=== PATIENT | male | born 1985 | race Caucasian/White ===

== ENCOUNTER 2019-08-21 13:00 | Outpatient (RCR) | payer OTHER, SELFPAY ==
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
--- NOTE | 2019-07-12 12:30 | HP.PTREVAL ---
Alice Mcdonald, DO, It has been my pleasure to treat JULIANA BRANDT over the last 3 visits for L shoulder pain. Please see the progress note below for an update on the physical therapy plan of care! Subjective: Pain got worse in shoulder blade mediallya fter starting pulling ex.8/10 for 5 days and now 3-4 but constant Objective/Function: tender knot rhomboid mid scap. Full aROM shoulder adn 4/5 strength with some pain with resisted flexion. Full neck ROM without pain and full scap ROM without pain. Plan Plan: increase to 3x/week for 2-3 weeks to wrok soft tissue L rhomboid with US themral, DTR, STM adn stretching to medial L scap. Try strength again slowly when painfree. New goal based on set back and fair prognosis Goals Goal 1:: Full aROM L shoulder without pain. Goal Time Frame: 4-6 Weeks Goal Progress: Goal Met Goal 2:: Pt feel back to 99% L sholder without pain. Goal Time Frame: 4-6 Weeks Goal Progress: Progressing Goal 3:: DASH perfect score Goal Time Frame: 4-6 Weeks Goal 4:: I approp HEP to minimize future problems. Goal Time Frame: 4-6 Weeks Goal Progress: Progressing Goal 5:: Return to 90% better adn I strength program Goal Time Frame: 4-6 Weeks Goal Progress: NEW GOAL Anticipated Interventions Patient/Client Instruction: Educate patient on: Condition, Plan of Care, Risk Factors For the Purpose of:: To decrease pain, To increase ROM, To improve nutrient delivery to tissue, To improve muscle performance and motor function, To improve ability of physical actions for home/community/work/leisure Therapeutic Exercise to Include: Strength training, Postural training, Flexibilty training, Passive ROM, Active ROM For the Purpose of:: To decrease pain, To increase ROM, To improve muscle performance and motor function, To improve ability of physical actions for home/community/work/leisure Please do not hesitate to contact me at [phone] by phone or if you have questions or concerns regarding this new plan of care! Sincerely, Eduardo Miller, DPT, OCS, CSCS
--- NOTE | 2019-07-26 14:51 | HP.PTREVAL_ITS ---
Alice Mcdonald, DO, It has been my pleasure to treat JULIANA BRANDT over the last 9 visits for L shoulder pain. Please see the progress note below for an update on the physical therapy plan of care! Subjective: Strengthening going better. Pain lately is more tight for a day or two after strengthening. Tightness is medial to distal angle scap. Needs to continue ex adn will on his own. Does not want MRI. Unable to make 3x/week anymore. Activities; avoiding full force in gym. Objective/Function: Full cervical and UE AROM without pain, Slight tightness with resisted abd L medial to scap. Defintiely tight to palpation in this area vs R and mildly tender today. OVERALL IMMPROVING BUT NOT BACK TO NORMAL. A PPROPRIATE TO CONTINUE WEEKLY SOFT TISSUE WORK IN CONJUCTION WITH HOME STRENGTHENING. FAIR PROGNOSIS TO NEW GOAL Plan Plan: SEE NEW PLAN. WEEKLY X 4. PLEASE LET PATIENT STRENGTHEN HIMSELF I. FOCUS IN THERAPY ON US THERMAL ADN DTR MANUALLY TO L MEDIAL SCAPULAR RHOMBOIDS/TRAPS.STRETCH NEEDED. NO OTHER EX INSTRUCT AT THIS POINT. Goals Goal 1:: Full aROM L shoulder without pain. Goal Time Frame: 4-6 Weeks Goal Progress: Goal Met Goal 2:: Pt feel back to 99% L sholder without pain. Goal Time Frame: 4-6 Weeks Goal Progress: Progressing Goal 3:: DASH perfect score Goal Time Frame: 4-6 Weeks Goal 4:: I approp HEP to minimize future problems. Goal Time Frame: 4-6 Weeks Goal Progress: Goal Met Goal 5:: Return to 90% better adn I strength program Goal Time Frame: 4-6 Weeks Goal Progress: Progressing Goal 6:: nO SOFT TISSUE TIGHTNESS FELT OR PALPABLE IN L SCAP AND BACK TO NORMAL GYM WORKOUT. Goal Time Frame: 2-4 Weeks Goal Progress: NEW GOAL Anticipated Interventions Patient/Client Instruction: Educate patient on: Condition, Plan of Care, Risk Factors For the Purpose of:: To decrease pain, To increase ROM, To improve nutrient delivery to tissue, To improve muscle performance and motor function, To improve ability of physical actions for home/community/work/leisure Therapeutic Exercise to Include: Strength training, Postural training, Flexibilty training, Passive ROM, Active ROM For the Purpose of:: To decrease pain, To increase ROM, To improve muscle performance and motor function, To improve ability of physical actions for home/community/work/leisure Manual Therapy Techniques to Include: Massage, Soft tissue mobilization Ultrasound (thermal/non thermal): Yes For the Purpose of:: To decrease pain, To improve nutrient delivery to tissue, To increase oxygenation perfusion Please do not hesitate to contact me at [phone] by phone or if you have questions or concerns regarding this new plan of care! Sincerely, Eduardo Miller, DPT, OCS, CSCS
--- NOTE | 2019-08-21 13:40 | HP.PTDCSUM ---
HP - PT D/C Summary It has been my pleasure to treat JULIANA BRANDT under orders from Alice Mcdonald DO, for the diagnosis of L shoulder pain for a total of 13 visit(s). Discharge Date: 08/21/19 Please see the following information for a summary of their discharge status. - Subjective Subjective: Better. ROM is full and much better. Strefngthening was tough. Knot is nearly gone. No pain. activites pretty much normal including gym routine. - Pain L scap/shoulder Pain Intensity (Out of 10): 0 - Overall Improvement % Improvement: 95 - Objective Objective/Function: Full UE AROM, full cervical ROM, no tenderness L scap posterior today or palpable knots. Pt doing well and confident he can continue on his own in gym. - Goals Goal 1:: Full aROM L shoulder without pain. Goal Progress: Goal Met Goal 2:: Pt feel back to 99% L sholder without pain. Goal Progress: Progressing Goal 3:: DASH perfect score Goal Progress: Goal Met Goal 4:: I approp HEP to minimize future problems. Goal Progress: Goal Met Goal 5:: Return to 90% better adn I strength program Goal Progress: Goal Met Goal 6:: nO SOFT TISSUE TIGHTNESS FELT OR PALPABLE IN L SCAP AND BACK TO NORMAL GYM WORKOUT. Goal Progress: Goal Met - Plan Plan: d/c - D/C Information Discharge Comments: Doing well and to continue on his own in gyma nd at home. Contact doctor if pain returns. If there are questions or concerns regarding this patient's physical therapy, please feel free to call me at [phone]. Thank you for the referral of this patient. Sincerely, Eduardo Miller, DPT, OCS, CSCS
== END 2019-08-21 19:00 | disposition home or self-care (01) ==
LOC: PT 13:00
PROVIDERS: Family Provider Internal Medicine; PCP Internal Medicine; Referring Provider Internal Medicine; Visit Provider Internal Medicine
DX: M25.512 Pain in left shoulder (principal)
CPT/HCPCS: 97035; 97110; 97140; 97161; 97164; 97530

== ENCOUNTER 2023-10-14 17:14 | Emergency (ER) | payer OTHER, SELFPAY ==
[2023-10-14 17:15] VITALS: BP 110/87; PULSE 113; PULSE 115; RESP 16; TEMP 36.7; O2SAT 96; BMI 26.3
--- NOTE | 2023-10-14 17:21 | CT_ITS ---
EXAM: CT MAXILLOFACIAL WITHOUT INTRAVENOUS CONTRAST CLINICAL INDICATION: INJURY TECHNIQUE: Helically acquired images were obtained of the face without intravenous contrast. This CT exam was performed using one or more of the following dose reduction techniques: automated exposure control, adjustment of the mA and/or kV according to patient size, and/or use of iterative reconstruction technique. RADIATION DOSE: CTDIvol = 29.38 mGy, DLP = 591.53 mGy-cm COMPARISON: No relevant prior studies available. FINDINGS: BONES/JOINTS: Acute nasal bone fracture. Fracture of the anterior nasal spine. No discrete lytic or blastic abnormalities. SOFT TISSUES: Unremarkable. No focal subcutaneous swelling. No discrete fluid collections. ORBITS: Unremarkable. Both globes are unremarkable. Extraocular muscles are normal. Retrobulbar fat appears unremarkable. SINUSES: Sinus disease. MASTOID AIR CELLS: Unremarkable as visualized. Clear. DENTAL: No acute findings. No periodontal osseous erosion. CT/Sinus/Facial Bone IMPRESSION: Acute nasal bone fracture. Fracture of the anterior nasal spine. Electronically Signed: Darrel Geronimo MD at 18:07 EDT ,
--- NOTE | 2023-10-14 17:50 | EDS_ITS ---
HPI History of Present Illness Chief Complaint: Other, Pain/Inj Informant: patient and spouse/S.O. Narrative Narrative: 38-year-old male presenting to the emergency room with a chief complaint of nasal injury and tooth injury. Patient was playing soccer caught an elbow. Notes deformity to the nose epistaxis and a possible chip right upper central incisor. Not on blood thinners. Bleeding controlled. PFSH PFSH Medical History (Updated 10/14/23 @ 18:[address] Mauricio Carranza DO) History of concussion History of fracture of clavicle Home Medications amoxicillin 875 mg-potassium clavulanate 125 mg tablet 875 mg (0.875 x 875-125 mg) PO Q12H #14 TABLETS 10/14/23 [Rx Last Taken Unknown] hydrocodone-acetaminophen 5-325mg 5mg-325mg 1 tab PO Q6H PRN PRN Pain 3 days #12 TABLETS 10/14/23 [Rx Last Taken Unknown] Allergy/AdvReac Type Severity Reaction Status Date / Time No Known Allergies Allergy Verified 10/14/23 17:18 Family History Brother Anxiety Social History Smoking Status: Never smoker alcohol intake: current alcohol intake frequency: a few times a month substance use type: does not use what type of physical activity do you participate in: aerobics and weight training frequency: 1-2 times per week ROS ROS ED Constitutional Constitutional ED: Denies chills, fever(s) or weight loss Eyes Eyes: Denies change in vision or diplopia ENT ENT ED: Reports other Details: Nasal trauma tooth injury ; Denies ear pain, rhinorrhea or sore throat Cardiovascular Cardiovascular: Denies chest pain, orthopnea, palpitations or racing heartbeat Respiratory/Chest Respiratory/Chest: Denies cough, dyspnea or orthopnea Gastrointestinal Gastrointestinal: Denies abdominal pain, diarrhea, nausea or vomiting Genitourinary Genitourinary ED: Denies dysuria, hematuria or urinary frequency Musculoskeletal Musculoskeletal: Denies arthralgias, myalgias or neck pain Integumentary Denies abscess or rash Neurologic Neurologic: Denies headache(s) or weakness Psychiatric Psychiatric: Denies anxiety, depression, suicidal ideation or suicidal thoughts Endocrine Endocrinology: Denies polydipsia, polyphagia or polyuria Allergic/Immunologic Allergic/Immunologic ED: Denies mouth swelling, tongue swelling or urticaria EXAM Physical Exam Const Vital Signs: 10/14/23 17:15 10/14/23 17:15 10/14/23 17:50 Temperature 98.1 F 98.1 F Temperature Source Temporal Temporal Pulse Rate 115 H 113 H Respiratory Rate 16 16 Respiratory Effort Normal Respiratory Pattern Normal Blood Pressure 110/87 H 110/87 H Blood Pressure Mean 94 94 Pulse Ox 96 96 Oxygen Delivery Method Room Air Room Air Positive well nourished and well developed General Appearance ED: well developed HEENT Reports normocephalic and moist mucous membranes HEENT Narrative: There is nasal swelling and abrasion noted. No septal hematoma. There is slight deviation to the right of the nose. Midface is otherwise stable. There is an Olivas 1 fracture of the posterior inferior aspect of the right upper central incisor. I do not appreciate any significant looseness of the tooth. No blood along the gumline. Eyes PERRL and EOMs intact bilaterally Neck full ROM, no lymphadenopathy, supple and no JVD Resp normal respiratory effort and clear to auscultation bilaterally Cardio regular rate, regular rhythm and no murmurs GI normal to inspection, nondistended, normoactive bowel sounds and non-tender Palpation: soft Back/Spine no CVA tenderness and normal ROM Extremity normal to inspection General Extremety ED: Negative for edema General Extremity: Negative for edema Neuro oriented x3 and CN's II-XII intact bilaterally Sensorium / Orientation: alert Motor Exam: strength 5/5 throughout Psych mental status grossly normal Mood & Affect: Negative for depressed or tearful Skin no rashes or lesions noted and no wounds MDM MDM MDM Narrative Medical decision making narrative: patient appears to have a Olivas 1 fracture of his tooth. He has nasal fracture on CT. Please see radiology read for complete details patiently placed on antibiotics and pain medication. Would have him follow-up with dentistry as we ll as ENT in 2 weeks if concern for cosmetics or breathing changes. Radiography Diagnostic Testing: Clinical Impression(s) from Imaging Studies Facial/Sinus 10/14/23 17:21 IMPRESSION: Acute nasal bone fracture. Fracture of the anterior nasal spine. Electronically Signed: Darrel Geronimo MD at 18:07 EDT , Discharge Plan Triage Chief Complaint: Other, Pain/Inj ED Provider: Mauricio Carranza Dx/Rx/DC Orders Clinical Impression: Fracture of nasal bone, Fracture of tooth Instructions: ED Dental Trauma, ED Nose Fracture, with X-Ray Prescriptions: New hydrocodone-acetaminophen [hydrocodone-acetaminophen] 5-325 mg tablet 1 tab PO Q6H PRN PRN (Reason: Pain) 3 Days Qty: 12 0RF amoxicillin-pot clavulanate [amoxicillin-pot clavulanate] 875-125 mg tablet 875 mg PO Q12H Qty: 14 0RF Primary Care Provider: Alice Mcdonald Referrals: Alice Mcdonald DO [Primary Care Provider] - Nestor Kaufman MD [Med Staff - Active Staff] - (in 2 weeks if concerns with cosmetics or breathing) Disposition Disposition: Home, Self Care
[2023-10-14] MEDS: HYDROcodone Bitartrate/Apap 5/325 Tablet PO (18:00)
[2023-10-14 18:23] VITALS: BP 112/72; PULSE 101; RESP 16; TEMP 36.4; O2SAT 98
[2023-10-14] MEDS: Amox/Clavulanate 875 MG Tablet PO (18:33)
== END 2023-10-14 18:35 | disposition home or self-care (01) ==
PROVIDERS: Emergency Provider Emergency Medicine; PCP Internal Medicine; Visit Provider Emergency Medicine
DX: S02.2XXA Fracture of nasal bones, initial encounter for closed fracture (principal); S02.5XXA Fracture of tooth (traumatic), initial encounter for closed fracture; Y93.66 Activity, soccer; W50.0XXA Accidental hit or strike by another person, initial encounter
CPT/HCPCS: 70486; 99282